=== PATIENT | female | born 1940 | race Caucasian/White ===

== ENCOUNTER 2024-05-13 09:25 | Outpatient (REF) | payer MEDICARE, SELFPAY | END 2024-05-13 09:26 | disposition home or self-care (01) | LOC: HO.HOSX 09:25 | PROVIDERS: Visit Provider Orthopaedic Surgery | DX: M25.552 Pain in left hip (principal); M54.50 Low back pain, unspecified | CPT/HCPCS: 73502; 99212 ==

== ENCOUNTER 2024-05-13 10:48 | Outpatient (AMB) | payer MEDICARE, SELFPAY ==
--- NOTE | 2024-05-13 11:03 | A.OFFVIS_ITS ---
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 The patient describes her back pain as sharp and severe in nature, 10/10. Her pain has gotten worse over the last 12 months in spite of continued non operative treatments. She has had cortisone injections in the past. The most recent injection gave her minimal relief. She has failed the last 6 weeks of conservative treatment which have included physical therapy exercises, Tylenol and ibuprofen. She also tried meloxicam which gave her no relief. She also reports intermittent weakness in her left leg. Allergies codeine Adverse Reaction (Unknown, Verified 05/13/24 11:15) Stomach Upset [facility] Social History (Updated 05/13/24 @ 11:16 by Aida Nicholas) Alcohol intake: never Patient Tobacco Use Status: Never used Tobacco Physical Exam Const Other: Well-nourished well-developed very friendly female awake alert and oriented x3 in no acute distress Back/Spine/Pelvis Other: Low back examination shows left-sided paraspinal muscle tenderness, pain with range of motion, positive straight leg raise test on the left at 70 degrees, 4/5 strength with testing of her left hip flexors and knee extensors when compared to 5/5 strength on her right side Extrem Other: Left hip examination shows full range of motion when compared to her right hip, mild tenderness over her greater trochanteric bursa, no overlying skin lesions Results Reviewed Results Reviewed: X-rays of the patient's bilateral hip show mild diffuse joint space narrowing, no acute bony abnormalities Assessment & Plan Assessment & Plan (1) Low Back Pain: Code(s): M54.50 - Low back pain, unspecified Plan Mrs. Salgado presents with progressively worsening low back pain which rad iates down her left leg as well as associated left leg weakness most likely due to lumbar stenosis or a disc herniation. Thus, I will send the patient for an MRI of her lumbar spine for further evaluation. I will see her back once the MRI is completed to discuss the findings and treatment options. She will call me prior to that time should her symptoms worsen in any way. Feel free to call me at any time should questions regarding her orthopedic management arise. I spent 21 minutes in reviewing the patient's records and imaging studies, seeing the patient and documenting in the medical record. Orders: Orders MR lumbar spine wo con Today M54.50 - Low back pain, unspecified, M79.605 - Pain in left leg XR hip LT min 2V Today M25.552 - Pain in left hip Coding Level of Care Code Est Pt Level 3 (07608) Complex EM visit Add On G2211 Diagnoses Low Back Pain M54.50
== END 2024-05-13 11:33 | disposition home or self-care (01) ==
LOC: HO.HOS 10:49
PROVIDERS: PCP Internal Medicine; Visit Provider Orthopaedic Surgery
DX: M54.50 Low back pain, unspecified (principal)
CPT/HCPCS: 99213; G2211

== ENCOUNTER 2024-06-06 18:24 | Outpatient (REF) | payer MEDICARE, SELFPAY | END 2024-06-06 18:25 | disposition home or self-care (01) | LOC: HO.MRI 18:24 | PROVIDERS: PCP Internal Medicine; Visit Provider Orthopaedic Surgery | DX: M79.605 Pain in left leg (principal); M54.50 Low back pain, unspecified | CPT/HCPCS: 72148 ==

== ENCOUNTER 2024-07-22 10:05 | Outpatient (AMB) | payer MEDICARE, SELFPAY ==
--- NOTE | 2024-07-22 10:13 | MHC.OFFVIS ---
Vital Signs 07/22/24 10:19 Height 5 ft Weight 150 lb BMI 29.3 Intake Visit Reasons: OV-MRI Lumbar Spine review Intake Note: Marie is a 83 year old female who presents with complaints of progressively worsening low back pain which radiates into her left hip and down her left leg. The patient describes her back pain as sharp and severe in nature, 10/10. Her pain has gotten worse over the last 12 months in spite of continued non operative treatments. She has had cortisone injections in the past. The most recent injection gave her minimal relief. She has failed the last 6 weeks of conservative treatment which have included physical therapy exercises, Tylenol and ibuprofen. She also tried meloxicam which gave her no relief. She also reports intermittent weakness in her left leg. Allergies codeine Adverse Reaction (Unknown, Verified 05/13/24 11:15) Stomach Upset Medication List - Last Reconciled 07/22/24 by Colin Zuñiga MD atorvastatin 20 mg PO DAILY atropine 1% drps ophthalmic (eye) dorzolamide-timolol 22.3-6.8 mg/mL ophthalmic (eye) fluoxetine 20 mg PO DAILY montelukast 10 mg PO DAILY netarsudil 0.02% (Rhopressa) drps ophthalmic (eye) omeprazole 20 mg PO DAILY prednisolone acetate 1% drps ophthalmic (eye) prednisone 20 mg PO BID trazodone 100 mg PO BEDTIME valsartan-hydrochlorothiazide 320-25 mg 1 tab PO DAILY verapamil ER 240 mg PO DAILY [facility] Social History (Updated 05/13/24 @ 11:16 by Aida Nicholas) Alcohol intake: never Patient Tobacco Use Status: Never used Tobacco Physical Exam Vital Signs: BMI result Body Mass Index 29.3 Const Other: Well-nourished well-developed very friendly female awake alert and oriented x3 in no acute distress Back/Spine/Pelvis Other: Low back examination shows left-sided paraspinal muscle tenderness, pain with range of motion, positive straight leg raise test on the left at 70 degrees Results Reviewed Results Reviewed: MRI report of the patient's lumbar spine shows diffuse degenerative disc disease as well as ?neural foraminal stenosis, most apparent on the right at L5-S1 and on the left at L4-L5 and L3-L4 Assessment & Plan Assessment & Plan (1) Lumbar stenosis: Code(s): M48.061 - Spinal stenosis, lumbar region without neurogenic claudication Category: Medical Plan Marie presents with progressively worsening low back pain which radiates into her left leg due to degenerative disc disease and neural foraminal stenosis. She has had physical therapy and injections in the past which gave her minimal relief. Thus, I will refer her to the Neurosurgery Department here at [facility]. She will contact me prior to that appointment should her symptoms worsen in any way. Feel free to call me at any time should questions regarding her orthopedic management arise. I spent 22 minutes in reviewing the patient's records and imaging studies, seeing the patient and documenting in the medical record. Orders: Referrals Neuro Spine Referral M48.061 - Spinal stenosis, lumbar region without neurogenic claudication Coding Level of Care Code Est Pt Level 3 (42198) Complex EM visit Add On G2211 Diagnoses Lumbar stenosis M48.061
[2024-07-22 10:19] VITALS: BMI 29.3
== END 2024-07-22 10:41 | disposition home or self-care (01) ==
PROVIDERS: PCP Internal Medicine; Visit Provider Orthopaedic Surgery
DX: M48.061 Spinal stenosis, lumbar region without neurogenic claudication (principal)
CPT/HCPCS: 99213; G2211

== ENCOUNTER → 2024-07-22 10:05 | Outpatient (BNVA) | payer MEDICARE, SELFPAY | PROVIDERS: PCP Internal Medicine; Visit Provider Orthopaedic Surgery | DX: M48.061 Spinal stenosis, lumbar region without neurogenic claudication (principal) | CPT/HCPCS: 99212 ==

== ENCOUNTER 2024-07-30 10:03 | Outpatient (AMB) | payer MEDICARE, SELFPAY ==
[2024-07-30 10:30] VITALS: BMI 29.3
--- NOTE | 2024-07-30 10:30 | A.SPINEOV_ITS ---
Vital Signs 07/30/24 10:30 Height 5 ft Weight 150 lb BMI 29.3 Intake Visit Reasons: LBP Intake Note: Ms. Meyer is here today c/o back pain radiating into the hips. 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 Zuñiga, Thank you for referring Marie to our office today. She is a pleasant 83-year-old female who comes in today with a chief complaint of low back pain and shooting pain into her left hip. She states that this has been ongoing for several years, but have become worse in the last 1 year. When asked to point where the worst of her pain is she points her finger to the right side of her low back near L5. However, when describing the most debilitating circumstance that she encounters as a result of her low back pain, she states that the shooting pain into her left hip keeps her awake at night largely limiting her ability to sleep at all. As a result of this it is significantly diminished her quality of life. She denies any numbness/tingling associated with her pain. She reports that her pain is worse at night when lying down, and better with standing and walking. She reports that she has been to physical therapy most recently toward the end of summer which was only modestly helpful. She has attempted o [id number] medications including ibuprofen and Tylenol without significant relief of her symptoms. She has obtained cortisone injections in her low back, the last being in September of 2023 which provided her with 2 months of 100% relief from her back and hip pain. She states these were completed at [facility]. PMH: History of right rotator cuff repair, history of right wrist surgery for removal of bone spur is, history of left total knee replacement. Hypertension, glaucoma, seasonal allergies, hyperlipidemia, GERD, asthma. Social hx: The patient does not smoke, reports no substance use. Medications: See LEPOW list. Allergies: The patient is allergic to codeine. Physical exam: The patient has 5/5 strength in her upper and lower extremities. She ambulates well without a spastic nonantalgic gait. She rises from a seated position without difficulty. She has no significant sensational deficits. (-) Moore's, (-) clonus, (-) bilateral straight leg raise. Imaging review: MRI of the lumbar spine completed here at [facility] shows diffuse spondylosis of the lumbar spine with varying levels of degenerative disc disease. There is a slight right lateral listhesis of L4-5 with the dextroscoliosis formed in the lower lumbar spine. There is mild- moderate bilateral foraminal stenosis at L 3-4. There is a posterior disc bulge at L4-5 causing mild-moderate bilateral foraminal stenosis at this level as well. In addition to this there is severe right-sided foraminal stenosis at L5- S1. Impression: Marie is a pleasant 83-year-old female who comes in today as a referral from our colleagues in Orthopedics for evaluation of her low back pain and shooting pain into her left hip. She reports this has been ongoing for many years but has worsened over the course of the last year. She does report a pertinent past medical history of injections at [facility] that per the patient report completely relieved her low back pain and shooting pain into her left hip for about 2 months until the pain returned. This is of high diagnostic utility for us as she has several different issues occurring in her spine at this time. If we are able to localize the area in which she had complete pain relief this may be a reasonable target for surgery to provide longstanding relief for the patient. I would like our veterinary medical officer obtain these records, and will call the patient back after I review her case with the attending neurosurgeon Dr. Jones and review her injection records. Thank you for allowing us to care for your patient. The total time spent with this visit with this patient was 45 minutes reviewing history, physical exam, MRI imaging review, and implementation of treatment plan or further diagnostic testing Shahram Jones MD,PhD [facility] Coding Level of Care Code New Pt Level 4 (59011) Diagnoses Spondylolisthesis M43.10
== END 2024-07-30 11:16 | disposition home or self-care (01) ==
PROVIDERS: PCP Internal Medicine; Referring Provider Orthopaedic Surgery; Visit Provider Physician Assistant
DX: M43.10 Spondylolisthesis, site unspecified (principal)
CPT/HCPCS: 99204

== ENCOUNTER → 2024-07-30 10:03 | Outpatient (BNVA) | payer MEDICARE, SELFPAY | PROVIDERS: PCP Internal Medicine; Referring Provider Orthopaedic Surgery; Visit Provider Physician Assistant | DX: M43.10 Spondylolisthesis, site unspecified (principal) | CPT/HCPCS: 99202 ==